=== PATIENT | female | born 1970 | race Two or more races ===

== ENCOUNTER 2024-11-11 01:46 | Observation (INO) | payer MEDICAID, SELFPAY ==
[2024-11-11] VITALS (16 sets, daily range): BP systolic 89–142; BP diastolic 58–90; PULSE 54–76; RESP 12–23; TEMP 36.3–37.2; O2SAT 93–98; BMI 30.1
--- NOTE | 2024-11-11 03:24 | XR_ITS ---
Examination: CT abdomen and pelvis without contrast. Coronal 3-D reconstructions. Sagittal 2-D reconstructions. Date and time of exam:November 11, 2024, 0417 hours INDICATIONS: Onset abdominal pain right-sided flank pain and nausea beginning 2 days ago CTDI: vol (mGy): 9.54 DLP: (mGycm): 509 Technique: Axial images of the abdomen have been obtained, 3 mm slice thickness Intravenous contrast material has not been administered. Low dose protocols were performed. One or more of the following dose reduction techniques were used; automated exposure control, adjustment of the mA and/or KV according to patient size, use of iterative reconstruction technique. Findings: 20 mm right lobe liver cyst No gallstones No pancreatic or adrenal mass No renal or ureteral calculi, no hydronephrosis Inflamed enlarged appendix below the cecum, coronal images 62 through 81, with appendicoliths No pelvic abscess Calcifications in the enlarged fundus of the uterus IMPRESSION: Acute appendicitis, no pelvic abscess
--- NOTE | 2024-11-11 03:25 | EDRME_ITS ---
Rapid Medical Screening Exam [facility] Arrival date/time: 11/11/24 01:46 54F with history of HTN presents to ED with 2 days of R flank pain that radiates towards groin, as well as N/V. Chief Complaint: Abdominal Pain Vital signs: Vital Signs Temperature 98.1 F 11/11/24 03:08 Pulse Rate 75 11/11/24 03:08 Respiratory Rate 23 H 11/11/24 03:08 Blood Pressure 142/90 H 11/11/24 03:08 Pulse Oximetry (%) 96 11/11/24 03:08 Oxygen Delivery Method Room Air 11/11/24 03:08
[2024-11-11 03:47] LABS: Basophils # (Auto) 0.1 Thou/mm3 (0.0-0.2); Basophils % (Auto) 0 % (0-2.5); Eosinophils # (Auto) 0.2 Thou/mm3 (0.0-0.5); Eosinophils % (Auto) 1 % (0-10); Immature Granulocytes % (Auto) 0 % (0-0); Immature Granulocytes Auto 0.05 Thou/mm3 (0.00-0.00); Lymphocytes # (Auto) 1.9 Thou/mm3 (1.0-4.8); Lymphocytes % (Auto) 11 % (10-50); Mean Corpuscular HGB Conc 34.8 g/dl (31.0-37.0); Mean Corpuscular Hemoglobin 28.2 pg (25.0-35.0); Mean Corpuscular Volume 81 fL (80-100); Monocytes # (Auto) 0.9 Thou/mm3 (0.0-0.8); Monocytes % (Auto) 5 % (0-12); Neutrophils # (Auto) 13.8 Thou/mm3 (1.8-7.7); Neutrophils % (Auto) 82 % (37-80); Nucleated Red Blood Cell % 0 /100 WBC (0); Platelet Count 196 Thou/mm3 (140-440); RDW Standard Deviation 39.3 fL (36.4-46.3); Red Blood Count 5.68 Miln/mm3 (4.00-5.20); White Blood Count 16.9 Thou/mm3 (3.6-11.0)
[2024-11-11 04:31] LABS: Alanine Aminotransferase 9 U/L (10-49); Albumin, Serum 4.7 gm/dL (3.5-5.0); Albumin/Globulin Ratio 2.5 (1.2-2.2); Alkaline Phosphatase 68 U/L (46-116); Anion Gap 12 (7-16); Aspartate Amino Transferase 12 U/L (0-34); BUN/Creatinine Ratio 21 Ratio (12-20); Bilirubin,Total 0.4 mg/dL (0.3-1.2); Blood Urea Nitrogen 15 mg/dL (9-23); Calcium 9.3 mg/dL (8.3-10.6); Calcium (Corrected) 9.3 mg/dL (8.5-10.1); Carbon Dioxide 27.6 mMol/L (20.0-31.0); Chloride 103 mMol/L (98-107); Creatinine (Component) 0.7 mg/dL (0.6-1.3); Estimated Creatinine Clearance 88.2 mL/min (>60); Globulin 1.9 gm/dL (2.3-3.5); Glucose 123 mg/dL (74-106); Lipase 39 U/L (12-53); Osmolality,Calculated 286 (275-295); Potassium 3.9 mMol/L (3.4-5.1); Sodium 143 mMol/L (136-145); Total Protein 6.6 gm/dL (5.7-8.2); eGFR > 60 See Note
[2024-11-11 05:30] LABS: Collection Type, Urine Clean Catch
[2024-11-11 06:00] LABS: Bilirubin,Urine Negative (Negative); Blood,Urine Trace (Negative); Clarity,Urine Clear (Clear/Hazy); Color,Urine Lt-Yellow (Lt Yel-Yel); Culture Indicated,Urine Not Indicated; Glucose, Urine Negative (Negative); Ketones,Urine Negative (Negative); Leukocyte Esterase,Urine Positive (Negative); Nitrite,Urine Negative (Negative); Protein,Urine Negative (Neg - Trace); RBC,Urine 3 /hpf (0-3); Specific Gravity,Urine 1.017 (1.001-1.035); Squamous Epithelial Cell,Urine < 1 /hpf (0-5); Urobilinogen,Urine Negative mg/dL (0.0-1.0); WBC,Urine 6 /hpf (0-5)
--- NOTE | 2024-11-11 06:30 | PD.EDABDPN ---
ED Abdominal Pain RME/HPI General Chief Complaint: Abdominal Pain Stated complaint: ABD PAIN Time seen by provider: 11/11/24 06:19 Arrival date/time: 11/11/24 01:46 RME / HPI RME / HPI narrative: 11/11/24 01:46 54F with history of HTN presents to ED with 2 days of R flank pain that radiates towards groin, as well as N/V. DR. HOWE MAIN ED EVALUATION: Related Data Allergies Allergy/AdvReac Type Severity Reaction Status Date / Time ibuprofen (From Advil) Allergy ITCHING Verified 11/11/24 01:47 Course Orders Category Date Time Status CT abdomen pelvis wo con Stat Exams 11/11/24 03:24 Taken CBC Stat Lab 11/11/24 03:32 Completed CMP [Comprehensive Metabolic Panel] Stat Lab 11/11/24 03:32 Completed Lipase Stat Lab 11/11/24 03:32 Completed Urinalysis, C/S if Indicated Stat Lab 11/11/24 04:16 Completed Morphine Inj Med 11/11/24 03:24 Discontinued 5 mg IM X1 ONE Ondansetron Odt [Zofran Odt] Med 11/11/24 03:24 Discontinued 4 mg PO X1 ONE Vital Signs Vital signs: Vital Signs Temperature 98.1 F 11/11/24 03:08 Pulse Rate 75 11/11/24 03:08 Respiratory Rate 23 H 11/11/24 03:08 Blood Pressure 142/90 H 11/11/24 03:08 Pulse Oximetry (%) 96 11/11/24 03:08 Oxygen Delivery Method Room Air 11/11/24 03:08 Abdominal Pain MDM MDM Narrative MDM Narrative:: IYani am scribing for and in the presence of Dr. Howe. Medications / Prescriptions Medication administrations:: Medication Administration History Discontinued Medications Morphine Sulfate (Morphine Sulf Inj 10 Mg/Ml Vial) 5 mg IM X1 ONE Stop: 11/11/24 03:25 Ondansetron HCl (Ondansetron Odt 4 Mg Tabrap) 4 mg PO X1 ONE; Protocol Stop: 11/11/24 03:25 Discharge Plan Prescriptions/Referrals Referrals: No Primary/Family,Physician [Primary Care Provider] - In 1 week Patient/Caregiver Discharge Instructions Print Language: Luxembourgish
[2024-11-11] MEDS: MORPHINE SULF INJ 10 MG/ML VIAL 5 MG IM (06:32)
[2024-11-11] MEDS: ONDANSETRON ODT 4 MG TABRAP PO (06:32)
--- NOTE | 2024-11-11 06:32 | PD.EDADULT ---
ED General RME/HPI General Chief complaint: Abdominal Pain Stated complaint: ABD PAIN Time Seen by Provider: 11/11/24 06:19 Arrival date/time: 11/11/24 01:46 RME / HPI RME / HPI narrative: 11/11/24 01:46 54F with history of HTN presents to ED with 2 days of R flank pain that radiates towards groin, as well as N/V. DR. RASHID MAIN ED EVALUATION: 54 year old female presents to the Emergency Department with complaints of abdominal pain. Per patient, she had right flank/ right mid back pain 2 days ago, epigastric abdominal pain yesterday and then it went to the right lower quadrant today. Associated symptoms include nausea and vomiting. PMHx: Hypertension. section. Social Hx: No tobacco, alcohol, or substance use. Related Data Allergies Allergy/AdvReac Type Severity Reaction Status Date / Time ibuprofen (From Advil) Allergy ITCHING Verified 11/11/24 01:47 Review of Systems Review of Systems Systems Reviewed: All systems reviewed, normal except as documented Narrative Review of Systems: GEN: No fever, no chills, no weight loss EYES: No discharge, no visual changes, no pain HEENT: No ear pain, no congestion, no sore throat PULM: No shortness of breath, no cough, no congestion CV: No chest pain, no dyspnea on exertion, no palpitations GI: + nausea, + vomiting, no diarrhea, + abdominal pain (see HPI), no constipation : No frequency, no urgency and no dysuria MUSC/SKEL: No joint pain, no back pain SKIN: No rash PSYCH: No hallucinations, no depression HEME/LYMPH: No easy bleeding or bruising tendencies NEURO: No weakness, no headache Past Medical History Past Medical History CARDIAC: Positive Hypertension GASTROINTESTINAL: Positive Gastrointestinal Disorders Family History FAMILY HISTORY: Positive Family Surgery Surgical History SURGICAL: Positive Section Social History SMOKING STATUS: Never smoker SUBSTANCE USE: does not use ALCOHOL: Never ED Exam Narrative Physical exam: GENERAL APPEARANCE: AxOx4, generally well-appearing, no acute distress. HEENT: NC, AT. MMM. EOMI, clear conjunctiva, oropharynx clear. NECK: Supple without lymphadenopathy. No stiffness or restricted ROM. HEART: Normal rate and regular rhythm, normal S1/S1, no m/r/g LUNGS: CTAB, moving air well. No crackles or wheezes are heard. ABDOMEN: There is right lower quadrant tenderness, but no rebound tenderness. Positive Rovsing's sign. Good bowel sounds heard. BACK: No midline C/T/L spine pain or deformity, No CVAT, no obvious deformity. EXTREMITIES: Without cyanosis, clubbing or edema. MUSCULOSKELETAL: FROM of all major joints, no chest tenderness NEUROLOGICAL: Grossly nonfocal. Alert and oriented, moving all 4 extremities. CN not formally tested but appear grossly intact. Observed to ambulate with normal gait. Skin: Warm and dry without any rash. Course Quality Measures none Orders Category Date Time Status NPO NOW Care 11/11/24 06:43 Active Consult to General Surgery Stat Cons 11/11/24 06:50 Ordered Diet NPO (NOW) Diet 11/11/24 06:[address] abdomen pelvis wo con Stat Exams 11/11/24 03:24 Completed CBC Stat Lab 11/11/24 03:32 Completed CMP [Comprehensive Metabolic Panel] Stat Lab 11/11/24 03:32 Completed Lipase Stat Lab 11/11/24 03:32 Completed Urinalysis, C/S if Indicated Stat Lab 11/11/24 04:16 Completed Morphine Inj Med 11/11/24 03:24 Discontinued 5 mg IM X1 ONE Morphine Inj Med 11/11/24 06:50 Discontinued 6 mg IVP X1 ONE Ondansetron Odt [Zofran Odt] Med 11/11/24 03:24 Discontinued 4 mg PO X1 ONE Piper/Tazo 3.375 gm Premix [Zosyn] Med 11/11/24 06:43 Discontinued 3.375 gm in 50 ml IV X1 Sodium Chloride 0.9% 1000 ml [Ns] 1,000 ml Med 11/11/24 06:42 Discontinued IV 999 mls/hr Vital Signs Vital signs: Vital Signs Temperature 98.1 F 11/11/24 03:08 Pulse Rate 75 11/11/24 03:08 Respiratory Rate 23 H 11/11/24 03:08 Blood Pressure 142/90 H 11/11/24 03:08 Pulse Oximetry (%) 96 11/11/24 03:08 Oxygen Delivery Method Room Air 11/11/24 03:08 Discharge Plan Plan Patient Disposition: Admit Acute Care w/in Hospital Problem List Clinical Impression: Acute appendicitis MDM Narrative MDM hospital course: IYani am scribing for and in the presence of Dr. Rashid. Clinical Information Provided by patient and family (translated) Medical Records Reviewed None (no previous visits) Meds/Rx Considered, not Ordered None Labs/Rad/Tests considered, not Ordered None Chronic Illness/Social Conditions Add or document further as needed: Hypertension. section. Imaging Radiology reports / interpretation(s): Procedure(s): CT abdomen pelvis wo con Accession Number(s): [id number] cc: Percy Lock MD; NO PRIMARY/FAMILY,PHYSICIAN; Jp Nolen PA-C~ Examination: CT abdomen and pelvis without contrast. Coronal 3-D reconstructions. Sagittal 2-D reconstructions. Date and time of exam:November 11, 2024, 0417 hours INDICATIONS: Onset abdominal pain right-sided flank pain and nausea beginning 2 days ago CTDI: vol (mGy): 9.54 DLP: (mGycm): 509 Technique: Axial images of the abdomen have been obtained, 3 mm slice thickness Intravenous contrast material has not been administered. Low dose protocols were performed. One or more of the following dose reduction techniques were used; automated exposure control, adjustment of the mA and/or KV according to patient size, use of iterative reconstruction technique. Findings: 20 mm right lobe liver cyst No gallstones No pancreatic or adrenal mass No renal or ureteral calculi, no hydronephrosis Inflamed enlarged appendix below the cecum, coronal images 62 through 81, with appendicoliths No pelvic abscess Calcifications in the enlarged fundus of the uterus IMPRESSION: Acute appendicitis, no pelvic abscess Dictated By: Percy Lock MD Medication Administration(s) Medication Administration History Sodium Chloride (Ns) 1,000 mls @ 100 mls/hr IV .Q10H MONIQUE Stop: 12/11/24 07:29 Last Admin: 11/11/24 08:05 Dose: 100 mls/hr Documented By: GALLITO Discontinued Medications Sodium Chloride (Ns) 1,000 mls @ 999 mls/hr IV .Q1H1M ONE Stop: 11/11/24 07:42 Last Infusion: 11/11/24 08:22 Dose: Infused Documented By: Admin: 11/11/24 07:19 Dose: 999 mls/hr Documented By: GALLITO Piperacillin/Tazobactam/Dextrose (Zosyn) 3.375 gm in 50 mls @ 100 mls/hr IV X1 ONE Stop: 11/11/24 07:12 Last Infusion: 11/11/24 07:51 Dose: Infused Documented By: Admin: 11/11/24 07:20 Dose: 100 mls/hr Documented By: GM Morphine Sulfate (Morphine Sulf Inj 10 Mg/Ml Vial) 5 mg IM X1 ONE Stop: 11/11/24 03:25 Last Admin: 11/11/24 06:32 Dose: 5 mg Documented By: BD Morphine Sulfate (Morphine Sulf Inj 10 Mg/Ml Vial) 6 mg IVP X1 ONE Stop: 11/11/24 06:51 Last Admin: 11/11/24 09:24 Dose: 6 mg Documented By: RD Ondansetron HCl (Ondansetron Odt 4 Mg Tabrap) 4 mg PO X1 ONE; Protocol Stop: 11/11/24 03:25 Last Admin: 11/11/24 06:32 Dose: 4 mg Documented By: BD Consultations/Discussions re: Management Consult #1: Date/time: 11/11/24 6:20 am Physician, specialty, service, details: Discussed test HPI, PMHx, lab, radiology results and/or management with Dr. Pelayo. Will come evaluate the patient at bedside. Consult #2: Date/time: 11/11/24 7:41 am Physician, specialty, service, details: Discussed test HPI, PMHx, lab, radiology results and/or management with Dr. Pelayo. Will admit the patient for surgery. Diagnosis Differential diagnosis: appendicitis, IBD, diverticulitis Most likely dx, and/or detailed dx discussion: Acute appendicitis Dispositon Disposition: Admit
[2024-11-11] MEDS: SODIUM CHLORIDE 0.9% 1000 ML 1,000 ML 999 ML IV (07:19)
[2024-11-11] MEDS: PIPER/TAZO 3.375 GM PREMIX 3.375 GM/50 ML BAG IV ×3 (07:20→21:58)
--- NOTE | 2024-11-11 07:30 | ESHP_ITS ---
[facility] Date of Admission 11/11/2024 Chief Complaint Chief Complaint: Patient is admitted with a diagnosis of acute appendicitis HPI History of present illness revealed that the patient was in her usual health until 2 days ago when she started having pain in the back at first then the pain moved in the epigastric region and now down to the right lower quadrant. She did not vomit but was nauseated. She denies any fever or chills. She denies any such pain like this in the past. Patient has not been eating. Her past surgery consist of section. Patient is a housewife Past Medical History Past Medical History CARDIAC: Positive Hypertension; Negative Cardiac Arrhythmia, Atrial Fibrillation, Angina, Aneurysm, Congestive Heart Failure or Cardiomyopathy RESPIRATORY: Negative Chronic Obstructive Pulmonary Disease (COPD) GASTROINTESTINAL: Positive Gastrointestinal Disorders GENITOURINARY: Negative Renal Disease ENDOCRINE: Negative Diabetes Mellitus Type 1 or Diabetes Mellitus Type 2 OTHER HISTORY: Negative Autoimmune Disease Family History FAMILY HISTORY: Positive Family Surgery; Negative Family Respiratory Disorders, Family Cardiac Disorders, Family Gastrointestinal Problems, Family Genitourinary Problems, Family Reproductive Disorders, Family Musculoskeletal Disorders, Family Cancer or Family Anesthesia Reaction Surgical History SURGICAL: Positive Section Social History SMOKING STATUS: Never smoker SUBSTANCE USE: does not use Meds Home Medications and Allergies Allergies Allergy/AdvReac Type Severity Reaction Status Date / Time ibuprofen (From Advil) Allergy ITCHING Verified 11/11/24 01:47 Exam Vital Signs Temp Pulse Resp BP Pulse Ox O2 Del Method 98.4 F 61 17 119/90 H 95 Room Air 11/11/24 07:26 11/11/24 07:26 11/11/24 07:26 11/11/24 07:26 11/11/24 07:26 11/11/24 07:26 Narrative Exam Physical examination revealed a slightly obese female who is 5 foot 3 inches tall weighing 170 pounds with BMI of 30.1. Her vital signs are within normal limits Routine Respiratory Exam Comments: Good breath sounds Routine Cardiovascular Exam Comments: Sinus rhythm Routine Abdominal Exam Comments: Abdomen showed definite tenderness over the McBurney's area which is localized Routine Rectal Exam Comments: Referred Routine Exam Comments: Deferred Results Results: Laboratory Laboratory Narrative: Laboratory workup shows WBC around 16,000 with a shift to the left. Results: Imaging Imaging narrative: CT scan showed acute appendicitis Assessment & Plan Additional Assessment Additional comments: Impression: Acute appendicitis Hypertension Plan Plan: I advised the [id number] who speaks good Portuguese and help me to evaluate the patient by translating. She was told that the patient will require laparoscopic or open appendectomy. Other option will be to treat her with antibiotics but unfortunately can have a recurrent appendicitis. Because there is a fecalith I tend to recommend surgery other than antibiotic therapy at this time because there is a failure rate with fecalith. The risk of the procedure including bleeding or injury to the bowels requiring further surgery were explained to the patient. Patient also may end up having open appendectomy in case the laparoscopic approach fails. She is agreeable. Patient has been started on Zosyn and she will be taken to the operating room as soon as 1 is available Quality Measures Quality Measures none
[2024-11-11] MEDS: SODIUM CHLORIDE 0.9% 1000 ML 1,000 ML 100 ML IV ×2 (08:05→15:02)
[2024-11-11 08:44] LABS: HCG Qualitative,Urine Negative
[2024-11-11] MEDS: MORPHINE SULF INJ 10 MG/ML VIAL 6 MG IVP (09:24)
--- NOTE | 2024-11-11 11:43 | PC.CC ---
Patient is a 54 year-old female who presents to the hospital for acute appendicitis. Denise KILPATRICK made [id number] contact with patient. ASW introduced self, role, and reason for visit. At bedside was patient's daughter in law Margot Jones who translated for the patient with the patient's verbal consent. Patient appeared alert and oriented to self, location, and situation. Patient does not reside in [place] and is here from [place] visiting family. Patient is able to ambulate independently and complete her own ADLs. Patient does not require the use of any DME such as oxygen and is not a dialysis patient. Patient has her primary care provider in [place] and is not followed by a provider in [place]. For prescription medications needed while in [place] she will be using [facility]. Upon discharge patient will go back home to [place] but will remain local for the time needed. business services clerk to follow up with any discharge needs.
--- NOTE | 2024-11-11 13:08 | ESOP_ITS ---
Date of Procedure 11/11/24 Pre Op Diagnosis Acute appendicitis Post Op Diagnosis Same Procedure Laparoscopic appendectomy Findings Patient is found to have inflamed appendix without perforation Procedure Description After the patient was placed in supine position and anesthesia was administered with endotracheal intubation. Abdomen was prepped with ChloraPrep solution and draped in a sterile manner. A timeout was performed and a small incision was made just above the umbilicus. Fascia was cleaned and Veress needle was inserted to obtain a pneumoperitoneum up to 15 mmHg. Then I introduced a 12 mm trocar at the umbilicus with a 10 mm camera. Patient was kept in Trendelenburg position with the left lateral tilt. Intra-abdominal organs were visualized and this showed omentum covering the right lower quadrant. A 5 mm trocar was inserted in the right lower quadrant under direct vision and using a laparoscopic [place]erv[place] I move the omentum and identified the appendix. Appendix was inflamed in its entire length and was located medial to the cecum. Another 5 mm trocar was inserted in the left suprapubic area under direct vision and using Harmonic krista I dissected the mesoappendix cauterizing the vessels. When the base of the appendix was reached this was stapled using an Endo cutter 35 power bg. Then the appendix was retrieved through the Endopouch through the umbilical port. Then after irrigating and cleaning the pelvis and the right lower quadrant all the trocars were pulled out and the pneumoperitoneum was let out. Fascia was closed with interrupted 0 Ethibond and then I injected half percent Marcaine with epinephrine for analgesia. Skin was then closed with interrupted 4-0 nylon stitches and a Tegaderm dressing was applied. Patient tolerated the procedure well and returned to recovery room in stable condition. Anesthesia GETA Pathology / specimen Other (Inflamed appendix) IVF Infused 1,000 Estimated Blood Loss 30 Disposition PACU Surgeon Alice Luis MD Surgical Staff Operation Date: 11/11/24 12:15 Case Staff ASW/ASUW TACTICAL AIR CONTROLLER: Percy Esquivel RNretention representative: Urszula Wright
--- NOTE | 2024-11-11 13:12 | SUR.PHASEI ---
Pt. arrived to recovery via gurney, eyes closed, oral airway in place, pt. receiving 6 liters 02 via oxymask, lung sounds clear, equal expansion shannen., lap sites x3, CDI, no active bleeding or redness noted, report received from Richelle DRIVER and Percy TURK.
--- NOTE | 2024-11-11 13:39 | SUR.PHASEI ---
7429 Report received from Yany RN, patient resting comfortably in [facility] on oxygen 4L via nasal cannula, breathing unlabored, vital signs stable, denies pain and nausea, dressing intact to abdomen x3; dissolvable sutures, gauze, medipore tape, no bleeding noted, denies nausea, will assume care of patient
--- NOTE | 2024-11-11 13:39 | SUR.PHASEI ---
Gave report on pt. s/p surgery to Daily Ware RN, VSS, no c/o pain or nausea, lap sites x3 CDI.
--- NOTE | 2024-11-11 13:45 | SUR.PHASEI ---
1341 [id number] at bedside with patient
--- NOTE | 2024-11-11 14:28 | SUR.PHASEI ---
1421 Report given to Gin DRIVER, patient meets discharge criteria from recovery, resting comfortably in rmoon, on oxygen 4L via nasal cannula, breathing unlabored, vital signs stable, denies pain, dressing intact; no bleeding noted, eating ice chips; denies nausea, patient [id number] at bedside 1428 Patient transported via gurney to room 381 without incident, patient able to ambulate from rmoon to bed with stand by assist, Gin DRIVER promptly in patients room, patient resting comfortably in bed with call light in reach when this account underwriter left patients room.
--- NOTE | 2024-11-11 17:30 | PC.NURSE ---
patient ambulated to bathroom and voided post surgery x1 at 1600.--Ja
[2024-11-11] MEDS: KETOROLAC INJ 30 MG/ML VIAL IVP (21:56)
[2024-11-12] VITALS: BP 127/61; PULSE 71; RESP 18; TEMP 36.4; O2SAT 95
[2024-11-12] MEDS: SODIUM CHLORIDE 0.9% 1000 ML 1,000 ML 100 ML IV (00:45)
[2024-11-12 04:00] VITALS: BP 108/61; PULSE 74; RESP 18; TEMP 36.4; O2SAT 93
[2024-11-12 06:08] LABS: Basophils % (Auto) 0 % (0-2.5); Eosinophils % (Auto) 0 % (0-10); Hematocrit 40.7 % (36.0-46.0); Hemoglobin 14.1 g/dL (12.0-16.0); Immature Granulocytes % (Auto) 0 % (0-0); Immature Granulocytes Auto 0.02 Thou/mm3 (0.00-0.00); Lymphocytes # (Auto) 1.3 Thou/mm3 (1.0-4.8); Lymphocytes % (Auto) 18 % (10-50); Mean Corpuscular HGB Conc 34.6 g/dl (31.0-37.0); Mean Corpuscular Hemoglobin 28.3 pg (25.0-35.0); Mean Corpuscular Volume 82 fL (80-100); Monocytes # (Auto) 0.6 Thou/mm3 (0.0-0.8); Monocytes % (Auto) 8 % (0-12); Neutrophils # (Auto) 5.5 Thou/mm3 (1.8-7.7); Neutrophils % (Auto) 74 % (37-80); Nucleated Red Blood Cell % 0 /100 WBC (0); Platelet Count 138 Thou/mm3 (140-440); RDW Standard Deviation 39.9 fL (36.4-46.3); Red Blood Count 4.99 Miln/mm3 (4.00-5.20); White Blood Count 7.4 Thou/mm3 (3.6-11.0)
[2024-11-12] MEDS: PIPER/TAZO 3.375 GM PREMIX 3.375 GM/50 ML BAG IV (06:11)
[2024-11-12 06:19] LABS: Anion Gap 10 (7-16); Carbon Dioxide 27.9 mMol/L (20.0-31.0); Chloride 106 mMol/L (98-107); Potassium 3.5 mMol/L (3.4-5.1); Sodium 144 mMol/L (136-145)
[2024-11-12 07:39] VITALS: PULSE 73; RESP 16; RESP 94; O2SAT 94
[2024-11-12 08:00] VITALS: BP 126/73; PULSE 75; RESP 75; TEMP 36.4; O2SAT 18
[2024-11-12] MEDS: KETOROLAC INJ 30 MG/ML VIAL IVP (11:54)
[2024-11-12 12:00] VITALS: BP 137/73; PULSE 66; RESP 18; TEMP 36.2; O2SAT 92
--- NOTE | 2024-11-12 12:25 | PD.SURPROG ---
Documentation for date of: 11/12/24 Subjective Subjective Brief History: History of present illness revealed that the patient was in her usual health until 2 days ago when she started having pain in the back at first then the pain moved in the epigastric region and now down to the right lower quadrant. She did not vomit but was nauseated. She denies any fever or chills. She denies any such pain like this in the past. Patient has not been eating. Her past surgery consist of section. Patient is a housewife Narrative: The patient is doing well and tolerating clear liquids. Exam Vital Signs Temp Pulse Resp BP Pulse Ox O2 Del Method O2 Flow Rate 97.6 F 75 75 H 126/73 18 L Room Air 2 11/12/24 08:00 11/12/24 08:00 11/12/24 08:00 11/12/24 08:00 11/12/24 08:00 11/12/24 04:00 11/11/24 23:27 Her vital signs are normal Routine Abdominal Exam Comments: Abdominal examination is negative Results Results: Laboratory Laboratory Narrative: Laboratory results are within normal limits Assessment & Plan Assessment Additional comments: Impression: Stable postoperative course Plan Plan: Will discharge patient today. Procedures Procedures Laparoscopic appendectomy
--- NOTE | 2024-11-12 13:18 | PC.NURSE ---
Dr. Pelayo at bedside, all questions answer, POC discussed.
== END 2024-11-12 13:33 | disposition home or self-care (01) ==
LOC: SERX 07:15 → SERHOLD 08:12 → S3SX 14:39
PROVIDERS: Physician Assistant; Admitting Provider Surgery; Emergency Provider Emergency Medicine; Visit Provider Surgery
PROC: 0DTJ4ZZ Resection of Appendix, Percutaneous Endoscopic Approach (ICD-10-PCS; CPT 44970; principal; 2024-11-11 12:00)
DX: K35.30 Acute appendicitis with localized peritonitis, without perforation or gangrene (principal); I10 Essential (primary) hypertension
CPT/HCPCS: 44970; 36415; 74176; 80051; 80053; 81001; 81025; 83690; 85025; 94664; 96361; 96365; 96366; 96372; 96375; 96376; 99285; A4217; A4649; C1713; G0378; J0131; J1100; J1171; J1885; J2270; J2405; J2543; J2704; J3010; J3490; J7030; Q0162

== ENCOUNTER 2025-02-08 23:35 | Emergency (ER) | payer MEDICAID, SELFPAY ==
[2025-02-08 23:39] VITALS: PULSE 68; O2SAT 98; BMI 29.2
[2025-02-08 23:55] VITALS: BP 143/92; PULSE 60; RESP 22; TEMP 36.6; O2SAT 96
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
[2025-02-09] MEDS: ONDANSETRON ODT 4 MG TABRAP PO (00:41)
[2025-02-09] MEDS: FAMOTIDINE 20 MG TABLET 40 MG PO (00:42)
[2025-02-09] MEDS: DIAZEPAM 5 MG TABLET 10 MG PO (00:42)
== END 2025-02-09 00:45 | disposition home or self-care (01) ==
LOC: SERX 02-09 00:48
PROVIDERS: Emergency Provider Emergency Medicine
DX: F43.0 Acute stress reaction (principal)
CPT/HCPCS: 99283; Q0162; A9270